=== PATIENT | male | born 1980 ===

== ENCOUNTER 2021-12-03 01:55 | Emergency (ER) | payer OTHER ==
[2021-12-03 02:00] VITALS: BP 111/77; PULSE 77; RESP 18; TEMP 98
[2021-12-03] MEDS ORDERED: CEPHALEXIN 500MG STARTER PACK 4 CAP BTL PO STA (02:29)
--- NOTE | 2021-12-03 02:31 | ED ---
Skin/Abscess/FB HPI - General Chief complaint: Skin/Abscess/Foreign Body Stated complaint: fishhook in finger Time Seen by Provider: 12/03/21 02:27 Source: patient, RN notes reviewed, old records reviewed Mode of arrival: ambulatory Limitations: no limitations - History of Present Illness Initial comments: This is a 41-year-old male to the emergency department for evaluation presents with a fishhook stuck in the tip of his right middle finger. Patient has tenderness. Today. No other injuries noted. No other complaints MD complaint: other ([place] stuck in finger) -: minutes(s) Location: R hand Severity: mild Severity scale (1-10): 2 Quality: stabbing, aching Consistency: constant Improves with: none Worsens with: none Context: none Treatments Prior to Arrival: none - Related Data Previous Rx's Medication Instructions Recorded Cephalexin [Keflex] 500 mg PO Q6HR #20 cap 12/03/21 Allergies Allergy/AdvReac Type Severity Reaction Status Date / Time No Known Allergies Allergy Verified 12/03/21 02:00 Review of Systems ROS Statement: Those systems with pertinent positive or pertinent negative responses have been documented in the HPI. ROS Other: All systems not noted in ROS Statement are negative. Past Medical History Past Medical History: No Reported History History of Any Multi-Drug Resistant Organisms: None Reported Past Surgical History: No Surgical Hx Reported Past Psychological History: No Psychological Hx Reported Smoking Status: Never smoker Past Alcohol Use History: None Reported Past Drug Use History: None Reported General Exam - General Exam Comments Initial Comments: [place] stuck in right middle finger General appearance: alert, in no apparent distress Head exam: Present: atraumatic, normocephalic, normal inspection Eye exam: Present: normal appearance, PERRL, EOMI. Absent: scleral icterus, conjunctival injection, periorbital swelling ENT exam: Present: normal exam, mucous membranes moist Neck exam: Present: normal inspection. Absent: tenderness, meningismus, lymphadenopathy Respiratory exam: Present: normal lung sounds bilaterally. Absent: respiratory distress, wheezes, rales, rhonchi, stridor Cardiovascular Exam: Present: regular rate, normal rhythm, normal heart sounds. Absent: systolic murmur, diastolic murmur, rubs, gallop, clicks GI/Abdominal exam: Present: soft, normal bowel sounds. Absent: distended, tenderness, guarding, rebound, rigid Extremities exam: Present: normal inspection, full ROM, normal capillary refill. Absent: tenderness, pedal edema, joint swelling, calf tenderness Back exam: Present: normal inspection Neurological exam: Present: alert, oriented X3, CN II-XII intact Psychiatric exam: Present: normal affect, normal mood Skin exam: Present: warm, dry, intact, normal color. Absent: rash Course Vital Signs 12/03/21 01:58 Temperature 98 F Pulse Rate 77 Respiratory 18 Rate Blood Pressure 111/77 O2 Sat by Pulse 98 Oximetry - Reevaluation(s) Reevaluation #1: 12/03/21 medical records reviewed Reevaluation #2: 12/03/21 [place] is removed successfully here in the emergency department Reevaluation #3: 12/03/21 Patient has no complaints will take antibiotics tetanus is up-to-date Procedures - [place] Body Removal Soft Tissue Consent Obtained: verbal consent Site: hand Anesthetic Used: lidocaine 1% Foreign Body Suspected: Fish Hook Foreign Body Removed: yes Foreign Body Removal Technique: Irrigation Patient Tolerated Procedure: well Medical Decision Making - Medical Decision Making 41 male with fishhook removed, no complications. Patient can be discharged home Disposition Clinical Impression: Fish hook injury of right index finger Disposition: HOME SELF-CARE Condition: Good Instructions (If sedation given, give patient instructions): Soft Tissue Foreign Body (ED), Puncture Wound (ED) Prescriptions: Cephalexin [Keflex] 500 mg PO Q6HR #20 cap Is patient prescribed a controlled substance at d/c from ED?: No Referrals: None,Stated [Primary Care Provider] - 1-2 days Time of Disposition: 02:20
== END 2021-12-03 02:41 | disposition home or self-care (01) ==
LOC: EC 01:55
DX: S61.243A Puncture wound with foreign body of left middle finger without damage to nail, initial encounter (principal); W45.8XXA Other foreign body or object entering through skin, initial encounter
CPT/HCPCS: 99283